=== PATIENT | male | born 1995 | race Caucasian/White ===

== ENCOUNTER 2020-12-23 18:10 | Inpatient (IN) ==
[2020-12-23 19:00] LABS: Basophils # 0.1 K/mcL (0.0-0.2); Basophils % 0.6 %; Eosinophils # 0.5 K/mcL (0.0-0.6); Eosinophils % 3.7 %; Hematocrit 44.7 % (37.5-50.1); Hemoglobin 15.8 g/dL (12.9-16.9); Immature Granulocytes % 0.5 % (0-4); Lymphocytes # 3.5 K/mcL (0.6-4.6); Lymphocytes % 26.1 %; Mean Corpuscular HGB Conc 35.3 g/dL (31.6-35.5); Mean Corpuscular Hemoglobin 30.5 pg (28.0-33.3); Mean Corpuscular Volume 86.3 fL (83.0-100.0); Mean Platelet Volume 8.9 fL (9.4-12.4); Monocytes # 1.8 K/mcL (0.0-1.3); Monocytes % 13.3 %; Neutrophils # 7.4 K/mcL (1.6-8.9); Platelet Count 346 K/mcL (140-400); Red Blood Count 5.18 M/mcL (4.19-5.50); Red Cell Distribution Width 11.7 % (11.5-14.5); Segmented Neutrophils % 55.8 %; White Blood Count 13.3 K/mcL (4.3-11.1)
[2020-12-23 19:03] LABS: Amphetamine Screen,Urine Negative ng/mL (Cutoff=1000); Barbiturate Screen,Urine Negative ng/mL (Cutoff=200); Benzodiazepines Screen,Urine Negative ng/mL (Cutoff=200); Cannabinoid Screen,Urine Negative ng/mL (Cutoff = 50); Cocaine Screen,Urine Negative ng/mL (Cutoff= 300); Opiate Screen,Urine Negative ng/mL (Cutoff=300); Phencyclidine Screen,Urine Negative ng/mL (Cutoff=25)
[2020-12-23 19:10] LABS: Acetaminophen < 10 mcg/mL (10-20); BUN/Creatinine Ratio 18 (6-26); Blood Urea Nitrogen 15 mg/dL (6-20); Calcium 9.6 mg/dL (8.6-10.3); Carbon Dioxide 24 mEq/L (23-29); Chloride 105 mEq/L (98-107); Ethanol < 10 mg/dL (Less than 10); Glucose 96 mg/dL (70-105); Osmolality,Calculated 285 (280-300); Potassium 3.6 mEq/L (3.5-5.1); Salicylate < 2.5 mg/dL (15.0-30.0); Sodium 137 mEq/L (136-145); eGFR For African Americans > 60 (> 60); eGFR For Non-African Americans > 60 (> 60)
[2020-12-23] MEDS ORDERED: Nicotine 21 MG PATCH.TD24 TD SCH ×2 (20:15→20:45)
[2020-12-23 21:12] LABS: Bilirubin,Urine Negative (Negative); Blood,Urine Negative (Negative); Clarity,Urine Clear (Clear); Color,Urine Yellow (Yellow); Glucose,Urine (UA) Normal (Normal); Ketones,Urine Negative (Negative); Leukocyte Esterase,Urine Negative (Negative); Nitrite,Urine Negative (Negative); Protein,Urine Trace mg/dL (Neg-Trace); Specific Gravity,Urine > 1.030 (1.010-1.025); Urobilinogen,Urine >=8.0 mg/dL (Normal)
[2020-12-23 23:05] LABS: Influenza A PCR Negative (Negative); Influenza B PCR Negative (Negative); Resp. Syncytial Virus PCR Negative (Negative); SARS-CoV-2 by PCR (In House) Negative (Negative)
[2020-12-23] MEDS ORDERED: Acetaminophen 325 MG TABLET PO PRN (23:19)
[2020-12-24] MEDS: traZODone 50 MG TABLET PO PRN ×2 (00:22→21:15)
[2020-12-24] MEDS: hydrOXYzine pamoate 25 MG CAPSULE PO PRN ×2 (00:22→21:15)
[2020-12-24] MEDS ORDERED: haloperidoL 5 MG TABLET PO PRN (11:24)
[2020-12-24] MEDS ORDERED: *HR* LORazepam 2 MG/ML VIAL IM PRN (11:24)
[2020-12-24] MEDS ORDERED: MOM Conc 10 ML UD.LIQ PO PRN (11:24)
[2020-12-24] MEDS ORDERED: Mag Hydrox/Al Hydrox/Simeth 30 ML UDC PO PRN (11:24)
[2020-12-24] MEDS ORDERED: *HR* LORazepam 1 MG TABLET PO PRN (11:24)
[2020-12-24] MEDS ORDERED: Haloperidol Lactate 5 MG/ML VIAL IM PRN (11:24)
[2020-12-24] MEDS: Nicotine 2 MG GUM BC PRN ×3 (15:04→21:16)
[2020-12-25 10:30] VITALS: BP 129/83; PULSE 77; TEMP 98; O2SAT 98
== END 2020-12-25 15:30 | disposition home or self-care (01) | DRG 885 ==
LOC: EMEROOARM 18:10 → 1ANU 23:18
PROVIDERS: ADMIT Psychiatry & Neurology Psychiatry; ATTEND Psychiatry & Neurology Psychiatry